=== PATIENT | female | born 1940 | race Caucasian/White ===

== ENCOUNTER 2016-09-17 07:58 | Day surgery (SDC) | payer OTHER ==
[2016-09-17] MEDS ORDERED: NS 500 ML IV 500 ML IV ONE (08:51)
[2016-09-17] MEDS ORDERED: VERSED ONE ×2 (09:03→15:23)
[2016-09-17] MEDS ORDERED: TETRACAINE 0.5% OPHTH 1 DOSE AFFEYE ONE ×6 (09:30→11:41)
[2016-09-17] MEDS ORDERED: VIGAMOX 0.5% OPHTH 1 DOSE AFFEYE ONE ×5 (09:31→11:55)
[2016-09-17] MEDS ORDERED: PROLENSA OPHTH 1 DOSE AFFEYE ONE (09:42)
[2016-09-17] MEDS ORDERED: ALPHAGAN-P OPHTH 1 DOSE AFFEYE ONE (09:43)
[2016-09-17] MEDS ORDERED: MYDRIACIL OPHTH 1 DOSE AFFEYE ONE ×5 (09:44→09:48)
[2016-09-17] MEDS ORDERED: AK-DILATE 2.5% OPHTH 1 DOSE OP ONE ×5 (09:44→09:48)
[2016-09-17] MEDS ORDERED: CYCLOGYL 1% OPHTH 1 DOSE OP ONE ×5 (09:44→09:48)
[2016-09-17] MEDS ORDERED: VERSED IVP ONE ×2 (11:13→11:14)
[2016-09-17] MEDS ORDERED: AK-DILATE 10% OPHTH 1 DOSE AFFEYE ONE (11:17)
[2016-09-17] MEDS ORDERED: BETADINE OPHTH SOLN 5% EACHEYE ONE (11:32)
[2016-09-17] MEDS ORDERED: XYLOCAINE-MPF 1% IJ ONE ×2 (11:37→11:41)
[2016-09-17] MEDS ORDERED: ADRENALINE CHL INJ IJ ONE ×2 (11:37→11:41)
[2016-09-17] MEDS ORDERED: DUOVISC IO ONE ×2 (11:37→11:41)
[2016-09-17] MEDS ORDERED: BSS OPHTH (PLAIN) 500 ML with VANCOMYCIN HCL 500 MG VIAL 25 MG, ADRENALINE CHL INJ 1 MG IR ONE ×6 (11:39)
[2016-09-17 14:00] VITALS: BP 131/85
== END 2016-09-17 12:20 | disposition home or self-care (01) ==
LOC: SURG1 07:58
PROVIDERS: ATTEND Ophthalmology
PROC: 08DK3ZZ Extraction of Left Lens, Percutaneous Approach (ICD-10-PCS; principal; 2016-09-17 10:30)
PROC: 08RK3JZ Replacement of Left Lens with Synthetic Substitute, Percutaneous Approach (ICD-10-PCS; principal; 2016-09-17 10:30)
DX: H25.12 Age-related nuclear cataract, left eye (principal); H25.012 Cortical age-related cataract, left eye; H25.042 Posterior subcapsular polar age-related cataract, left eye; H52.222 Regular astigmatism, left eye
CPT/HCPCS: 99100; V2797; A4217; J0170; J2250; J3370